=== PATIENT | male | born 1990 | race Caucasian/White ===

== ENCOUNTER 2016-06-04 15:06 | Emergency (ER) | payer MEDICARE, MEDICAID ==
[2016-06-04 16:18] VITALS: BP 155/79
--- NOTE | 2016-06-04 16:41 | EDM.PDOC ---
ED HPI ENT - General Chief Complaint: ENT Problem Stated Complaint: LEFT SIDE TOOTH PAIN Time Seen by Provider: 06/04/16 16:28 Source: Reports: Patient, RN notes reviewed History Limitations: Reports: No limitations - History of Present Illness INITIAL COMMENTS - FREE TEXT/NARRATIVE: 25-year-old gentleman presents emergency Department a complaint of dental pain, he has been dealing with a tooth that has a swollen gum around it for the last 3 days he has not had any fevers but it is tender he started to get some swelling into his neck and cheek - Related Data Allergies/ADRs: Allergies Allergy/AdvReac Type Severity Reaction Status Date / Time No Known Allergies Allergy Verified 06/04/16 16:18 Home Meds: Home Meds Levothyroxine 25 mcg PO BEDTIME 08/23/14 [History] Past Medical History Respiratory History: Reports: Asthma Endocrine/Metabolic History: Reports: Hypothyroidism Social & Family History - Tobacco Use Smoking Status *Q: Never Smoker - Caffeine Use Caffeine Use: Reports: Soda - Alcohol Use Days Per Week of Alcohol Use: 0 - Recreational Drug Use Recreational Drug Use: No ED ROS ENT - Review of Systems Review Of Systems: See Below Constitutional: Denies: fever, chills HEENT: Reports: Dental pain Respiratory: Reports: no symptoms Cardiovascular: Reports: No symptoms GI/Abdominal: Reports: No symptoms : Reports: no symptoms ED EXAM, ENT - Physical Exam Exam: See Below Text/Narrative:: mouth mucosa is moist and pink no erythema or exudate is appreciated in the soft palate tongue is midline uvula is midline, examination of the dentition tooth #16 is partially overgrown with him is exquisitely tender to the touch and erythematous around this tooth Exam Limited By: No limitations General Appearance: alert, WD/WN, no apparent distress Course - Vital Signs Last Recorded V/S: Last Vital Signs Temp 96.4 F 06/04/16 16:18 Pulse 73 06/04/16 16:18 Resp 14 06/04/16 16:18 BP 155/79 H 06/04/16 16:18 Pulse Ox 98 06/04/16 16:18 Departure - Departure Time of Disposition: 16:40 Disposition: Home, Self-Care 01 Condition: good Clinical Impression: Dental abscess Forms: ED Department Discharge Additional Instructions: take full course of antibiotics used hydrocodone in combination with ibuprofen as needed for pain control, please call your dentist in the morning - Assessment/Plan Plan: Assessment Acuity = acute Site and laterality = dental abscess tooth #16 Etiology = suspicious for bacterial cause Manifestations = pain Location of injury = home Lab values = none Plan treat empirically clindamycin 300 mg by mouth 4 times a day, with hydrocodone total #10 tablets for pain control he has a primary dentist who he will call tomorrow Patient was in agreement with the plan all questions were answered, they were instructed to return to the emergency department or call for worsening symptoms. This note was dictated using TV[employer] voice recognition software please call with any questions.
== END 2016-06-04 16:51 | disposition home or self-care (01) ==
LOC: JP.ED 15:06
DX: K04.7 Periapical abscess without sinus (principal); E03.9 Hypothyroidism, unspecified
CPT/HCPCS: 99283